=== PATIENT | female | born 2000 | race Caucasian/White ===

== ENCOUNTER 2019-05-14 00:21 | Emergency (ER) | payer OTHER ==
[2019-05-14] MEDS ORDERED: Ondansetron PF 4 MG/2 ML Vial ONE (00:30)
[2019-05-14 01:11] LABS: Acetaminophen Less than 6.0 mcg/mL (10.0-30.0); Alcohol 270 mg/dL (Less than 10); Salicylate Less than 8.0 mg/dL (15.0-30.0)
== END 2019-05-14 04:30 | disposition home or self-care (01) ==
LOC: ERS 00:21
DX: F10.129 Alcohol abuse with intoxication, unspecified (principal); R11.2 Nausea with vomiting, unspecified
CPT/HCPCS: 36415; 51701; 80307; 96360; 96361; 96374; A4353; J2405